=== PATIENT | female | born 1955 | race Caucasian/White ===

== ENCOUNTER 2016-10-08 14:27 | Inpatient (IN) | payer MEDICARE, OTHER ==
[~2016-10-08] VITALS: Ht 177.8 cm; Wt 111.1 kg
[~2016-10-08 14:27] MED LIST: BYSTOLIC10 MG PO; DRISDOL50000 UNIT PO; KEFLEX500 MG PO; LIPITOR TAB 1010 MG PO; LOVENOX SY40 MG/0.4 SC; LYRICA300 MG PO; PERCOCET 10-321 EACH PO; VITAMIN C 500500 MG PO; ZANAFLEX4 MG PO
[2016-10-08] MEDS ORDERED: HYSEPT MC (17:57)
[2016-10-08] MEDS ORDERED: VOLTAREN100 GM TP (17:58)
[2016-10-08] MEDS ORDERED: AMBIEN10 MG PO (17:59)
[2016-10-08] MEDS ORDERED: FLEXERIL 10 MG10 MG PO (18:00)
[2016-10-08 18:19] LABS: HEMOGLOBIN 12.2 gm/dl (12.3-15.3); RED BLOOD COUNT 4.1 M/UL (4.00-5.10); WHITE BLOOD COUNT 12.5 K/UL (4.5-11.0)
[2016-10-08 20:36] LABS: BUN/CREATININE RATIO 19 (0-10)
[2016-10-09 09:17] LABS: BUN/CREATININE RATIO 18 (0-10)
[2016-10-09 10:33] LABS: HEMOGLOBIN 11.1 gm/dl (12.3-15.3); RED BLOOD COUNT 3.72 M/UL (4.00-5.10); WHITE BLOOD COUNT 11.9 K/UL (4.5-11.0)
[2016-10-10 07:52] LABS: HEMOGLOBIN 10.9 gm/dl (12.3-15.3); RED BLOOD COUNT 3.66 M/UL (4.00-5.10)
[2016-10-10 08:08] LABS: BUN/CREATININE RATIO 22 (0-10)
[2016-10-11 08:28] LABS: HEMOGLOBIN 11.6 gm/dl (12.3-15.3); RED BLOOD COUNT 3.89 M/UL (4.00-5.10); WHITE BLOOD COUNT 9.1 K/UL (4.5-11.0)
[2016-10-11 09:30] LABS: BUN/CREATININE RATIO 14 (0-10)
[2016-10-12 05:53] LABS: HEMOGLOBIN 11.6 gm/dl (12.3-15.3); RED BLOOD COUNT 3.95 M/UL (4.00-5.10); WHITE BLOOD COUNT 8.6 K/UL (4.5-11.0)
[2016-10-12 06:07] LABS: BUN/CREATININE RATIO 11 (0-10)
[2016-10-14 05:18] LABS: HEMOGLOBIN 12.2 gm/dl (12.3-15.3); RED BLOOD COUNT 4.16 M/UL (4.00-5.10); WHITE BLOOD COUNT 9.3 K/UL (4.5-11.0)
[2016-10-14 05:34] LABS: BUN/CREATININE RATIO 18 (0-10)
[2016-10-17 04:48] LABS: HEMOGLOBIN 11.5 gm/dl (12.3-15.3); RED BLOOD COUNT 3.9 M/UL (4.00-5.10); WHITE BLOOD COUNT 7.1 K/UL (4.5-11.0)
[2016-10-17 05:06] LABS: BUN/CREATININE RATIO 19 (0-10)
[2016-12-20] MEDS ORDERED: LOPRESSOR 25 MG25 MG PO (20:38)
[2017-01-04] MEDS ORDERED: INVANZ1 GM IV (12:16)
== END 2016-10-18 16:35 | disposition other institution (70) | DRG 464 ==
LOC: M/S 15:29
PROVIDERS: Internal Medicine; Physician Assistant; Podiatrist Foot & Ankle Surgery; ADMIT Internal Medicine
PROC: 0J9Q0ZZ Drainage of Right Foot Subcutaneous Tissue and Fascia, Open Approach (ICD-10-PCS; principal; 2016-10-09 12:13)
PROC: 0JBQ0ZZ Excision of Right Foot Subcutaneous Tissue and Fascia, Open Approach (ICD-10-PCS; 2016-10-13)
PROC: 0QBN0ZZ Excision of Right Metatarsal, Open Approach (ICD-10-PCS; 2016-10-13)
DX: M86.171 Other acute osteomyelitis, right ankle and foot (principal); L02.611 Cutaneous abscess of right foot; L03.115 Cellulitis of right lower limb; I96 Gangrene, not elsewhere classified; L97.421 Non-pressure chronic ulcer of left heel and midfoot limited to breakdown of skin; A52.16 Charcot's arthropathy (tabetic); K50.90 Crohn's disease, unspecified, without complications; L02.612 Cutaneous abscess of left foot; E11.621 Type 2 diabetes mellitus with foot ulcer; B95.4 Other streptococcus as the cause of diseases classified elsewhere; G62.9 Polyneuropathy, unspecified; F41.9 Anxiety disorder, unspecified; I25.10 Atherosclerotic heart disease of native coronary artery without angina pectoris; G47.00 Insomnia, unspecified; I10 Essential (primary) hypertension; M51.37 Other intervertebral disc degeneration, lumbosacral region; Z90.49 Acquired absence of other specified parts of digestive tract; Z90.710 Acquired absence of both cervix and uterus; Z83.3 Family history of diabetes mellitus; Z80.1 Family history of malignant neoplasm of trachea, bronchus and lung
CPT/HCPCS: 36415; 71010; 80048; 80053; 80202; 83036; 83735; 84439; 84443; 85025; 85027; 86140; 87070; 87077; 87186; 87205; 93005; 93925; 93970; J0295; J0696; J1100; J1650; J2250; J2270; J2405; J2765; J2795; J3010; J3370; J7030; J7050; J7070; J7120

== ENCOUNTER → 2020-08-08 | Outpatient (CLI) | payer MEDICARE, OTHER ==
[~2020-08-08] MED LIST changes: +AMBIEN10 MG PO; +CLINDAMYCIN HC300 MG PO; -DRISDOL50000 UNIT PO; +FLEXERIL 10 MG10 MG PO; +HYSEPT MC; +INVANZ1 GM IV; +KLONOPIN TAB 00.5 MG PO; +LEVAQUIN750 MG PO; +OXYCODONE HCL5 MG PO; +PROBIOTIC1 EAC1 PO; +VITAMIN D2000 UNI1 PO; +VOLTAREN100 GM TP
[2020-08-08 16:48] LABS: HEMOGLOBIN 15.1 gm/dl (12.3-15.3); RED BLOOD COUNT 5.3 M/UL (4.00-5.10); WHITE BLOOD COUNT 7.2 K/UL (4.5-11.0)
[2020-08-08 17:17] LABS: BUN/CREATININE RATIO 14 (0-10)
== END ==
LOC: LAB 16:18
PROVIDERS: Family Medicine
DX: I10 Essential (primary) hypertension (principal)
CPT/HCPCS: 36415; 80053; 80061; 84443; 85025